=== PATIENT | female | born 1985 | race African-American/Black ===

== ENCOUNTER 2019-05-30 14:08 | Emergency (ER) | payer MEDICAID ==
[~2019-05-30] VITALS: Ht 157.5 cm; Wt 72.6 kg
--- NOTE | 2019-05-30 15:02 | NUR ---
Called pt x 1 , no answer
[2019-05-30 15:20] VITALS: BP_SYST 126
--- NOTE | 2019-05-30 17:10 | NUR ---
Patient to ER bed 04 to gown for evaluation. Side rails up.
--- NOTE | 2019-05-30 17:11 | NUR ---
Pt brought by family member, arrived in electric chair due to Hx of MS , pt was sent by urgent care for R lower abd pain, no N/V or fever, skin pink and warm, cap refill<3, VSS, respirations even and unlabored.
[2019-05-30] MEDS ORDERED: KETOROLAC TROMETHAMINE 30 MG VIAL IM ONE (17:30)
--- NOTE | 2019-05-30 17:45 | NUR ---
Pt off the unit for CT
[2019-05-30 19:11] VITALS: BP_SYST 121
--- NOTE | 2019-05-30 19:11 | NUR ---
Patient given written and verbal discharge instructions and verbalizes understanding. ER MD discussed with patient the results and treatment provided. Patient in stable condition. ID arm band removed. Rx Mineral Oil and MiraLax given. Patient educated on pain management and to follow up with PMD. Pain Scale 0. Opportunity for questions provided and answered. Medication side effect fact sheet provided.
== END 2019-05-30 19:11 | disposition home or self-care (01) ==
LOC: SED 14:08
DX: K59.00 Constipation, unspecified (principal); Z88.0 Allergy status to penicillin
CPT/HCPCS: 74176; 81002; 81025; 99284; J1885